=== PATIENT | female | born 1975 | race Caucasian/White ===

== ENCOUNTER 2019-01-20 05:22 | Day surgery (SDC) | payer BC, SELFPAY ==
--- NOTE | 2019-01-14 11:57 | HP.PCM_ITS ---
History and Physical Date of Admission: 01/20/19 Pre-Op History and Physical ? HPI: The patient is a 43 year old female presenting for pre-operative visit. She is scheduled for?TLH, bilateral salpingectomy and cystoscopy, for?pelvic pain, intramural fibroid, dysmenorrhea, status post endometrial ablation on?01/20/19. ??Procedure discussed along with risks, benefits and complications. ?Other alternatives discussed for management. Consent form signed??Yes.? PAST?MEDICAL?HISTORY PAST MEDICAL HISTORY Diagnosis Date ? Pneumothorax 11/2013 ? 3 chest tubes ? PAST?SURGICAL?HISTORY PAST SURGICAL HISTORY Procedure Laterality Date ? ABDOMINOPLASTY ? ? ? APPENDECTOMY ? 1995 ? SECTION HX ? 1995,1999 ? ENDOMETRIAL BIOPSY ? 09/2014 ? INSERTION OF CHEST TUBE ? 11-14-13 ? PAST SURGICAL HISTORY OF ? 12/2014 ? uterine ablation and right oophrectomy? CURRENT?MEDICATIONS Current Outpatient Medications Medication Sig Dispense Refill ? naproxen (NAPROSYN) 375 mg tablet Take 1 tablet by mouth three times daily as needed (pain). 60 tablet 1 ? L-Norgest and E Estradiol-E Estrad (SEASONIQUE) 0.15 mg-30 mcg (84)/10 mcg (7) 3MPk Take 1 tablet by mouth once daily. (Patient not taking: Reported on 01/14/2019 ) 1 Package 1 ? No current facility-administered medications for this visit.? ? ? ALLERGIES:?Ketorolac Tromethamine ? PERSONAL HISTORY:? SOCIAL?HISTORY Social History ??Socioeconomic History ?Marital status: ?Spouse name: Bj ?Number of children: 6 ?Years of education: Not on file ?Highest education level: Not on file ??Occupational History ?Occupation: Admistractive Environmental Engineering Manager ?Employer: [employer] ??Social Needs ?Financial resource strain: Not on file ?Food insecurity: ?Worry: Not on file ?Inability: Not on file ?Transportation needs: ?Medical: Not on file ?Non-medical: Not on file ??Tobacco Use ?Smoking status: Never Smoker ?Smokeless tobacco: Never Used ??Substance and Sexual Activity ?Alcohol use: Yes ?Comment: Occasionall ?Drug use: No ?Sexual activity: Yes ?Partners: Male ? control/protection: Tubal Ligation ?Comment: ablation ??Lifestyle ?Physical activity: ?Days per week: Not on file ?Minutes per session: Not on file ?Stress: Not on file ??Relationships ?Social connections: ?Talks on phone: Not on file ?Gets together: Not on file ?Attends sabianist service: Not on file ?Active member of club or organization: Not on file ?Attends meetings of clubs or organizations: Not on file ?Relationship status: Not on file ?Intimate partner violence: ?Fear of current or ex partner: Not on file ?Emotionally abused: Not on file ?Physically abused: Not on file ?Forced sexual activity: Not on file ??Other Topics ?Concerns: ?Not on file ??Social History Narrative ?Not on file ?? ? FAMILY HISTORY:? FAMILY?HISTORY FAMILY HISTORY Problem Relation Age of Onset ? None Mother ? ? Hypertension Father ? ? Prostate Cancer Father 55 ? Stroke Paternal Grandfather ? ? Cancer Maternal Grandmother ?bladder ? Diabetes Maternal Grandfather ? ? other (Other) Daughter ?Adopted ? other (Other) Daughter ?Adopted ? other (Other) Daughter ?Adopted ? other (Other) Daughter ?Adopted ? ? REVIEW OF SYMPTOMS: GENERAL: denies fevers or chills ENDOCRINOLOGY: has not been on steroids Cardiology : denies palpitations or chest pain Respiratory: denies SOB or cough Hematology: denies history of prolonged bleeding or easy bruising or VTE Allergy: Denies history of personal or family history of allergy to anesthesia ? ? PHYSICAL EXAMINATION: ? VITALS:?There were no vitals taken for this visit. ? GENERAL:??The patient is well nourished, well hydrated in no acute distress. ?, The patient is oriented to time, place, and person. NECK:?Supple. No lynphadenopathy, normal thyroid, no thyromegaly. LUNGS:?Clear to auscultation bilaterally. no wheezes, rhonchi or rales HEART:?Regular rate and rhythm, Normal heart sounds and No murmurs or gallops GENITALIA:?Normal external genitalia, Urethral meatus normal, Bladder nontender, normal vagina and normal vaginal tone, normal cervix, normal uterus, size and consistency, normal adnexa without masses or tenderness and perineum WNL ? Pap 07/01/2018 + HPV, PAP neg EMB- n/a, s/p ablation PELVIC US 04/06/2017 Overall impression: A normal sized anteverted uterus with the measurements shown below. The endometrial echo measures 4.4 mm. The visualization of the endometrium is hampered by the previous ablation Nabothian cysts are noted. A small intramural fibroid is noted on the left side of of uterine fundus The right ovary is surgically absent The left ovary appears normal. There is no free ?fluid in the cul de sac. Recommendations / therapy: Clinical correlation. Follow- up: . Indication: Abnormal Uterine Bleeding. History: Gynecological History: Past gynecological operations: ablation 2014. Gynecological Ultrasonography: Uterus: normal, anteverted. Size: Longitudinal 87 mm. Anterio- posterior 53 mm. Transverse 54 mm. Volume: 130.4 ml. Cervix: multiple nabothian cysts. Myometrium: The following features were observed in the myometrium suggestive of adenomyosis. Fibroids: Fibroid 1: Size: 23 mm x 15 mm x 18 mm. Type: anterior. Position: left fundus. Endometrium: endometrial cavity could not be seen clearly. Endometrium thickness total: 4.4 mm.? ? ? IMPRESSION:?Intramural uterine fibroid, pelvic pain, dysmenorrhea, status post endometrial ablation ? PLAN:???The risks/benefits/alternatives and personal involved for the planned?total upper scopic hysterectomy, bilateral salpingectomy and cystoscopy?were reviewed with the patient. Her questions were answered to her satisfaction and she desires to proceed. ?Consent was signed. ?I reviewed with her postop instructions and expectations.??She's had a previous sterilization and endometrial ablation, she understands she'll not be able to bear children in the future and has completed childbearing. ?She has a history of pelvic adhesions understands lysis of adhesions may be necessary at the time of her surgery. ? ? I have reviewed and updated past medical and surgical history, medications and allergies? Naima Wise M.D.
[2019-01-20] VITALS (8 sets, daily range): BP systolic 92–143; BP diastolic 57–91; PULSE 53–79; RESP 16–18; TEMP 36.2–37.4; O2SAT 95–100; BMI 34.1
--- NOTE | 2019-01-20 | HYST_PTH ---
PATIENT: KIANA SOL LOC: [facility] [place][id number] AGE/SX: 43/F ROOM: RE01/20/[address]: Dr. Naima Wise MD : 1975 BED: DIS: 01/20/2019 SPEC #: [id number] RECD: 01/20/19 12:06 STATUS: ANUP BOOGIE #: [id number] DEREK: 01/20/19 00:[address]: Naima Wise DEPT: SURGICAL PATHOLOGY RECD BY: Gerry Rajan ENTERED: 01/20/19 12:06 SP TYPE: HYSTERECT OTHR DR: Dr. Diego Saab MD Tissues: Uterus, NOS Procedures: Surgery Specimen Level V HEADER OPERATION: Laparoscopic hysterectomy, salpingectomy, cystoscopy PRE-OP DIAGNOSIS: Intramural uterine fibroid, pelvic pain, dysmenorrhea, status post endometrial ablation TISSUE SUBMITTED: Uterus, cervix and bilateral fallopian tubes MICROSCOPIC DIAGNOSIS Uterus, cervix and bilateral fallopian tubes, hysterectomy and bilateral salpingectomy: Cervix - mild chronic cystic cervicitis with tunnel clusters formation. Endometrium - changes consistent with status post endometrial ablation. Myometrium - intramural and subserosal leiomyomas (1.5 cm in greatest dimension). - Focal adenomyosis. Bilateral fallopian tubes - no pathologic diagnosis. Two Filshie clips (gross only). SJ:nenita 01/21/19 MICROSCOPIC DESCRIPTION Slides are reviewed. GROSS DESCRIPTION Received in fixative is one container labeled with the patient's name and designated uterus, cervix and bilateral fallopian tubes. The specimen consists of a hysterectomy specimen consisting of uterus with cervix and detached bilateral fallopian tubes. The uterus with cervix weighs 114 gm and measures 10 x 7 x 6 cm. A few subserosal nodules are noted. The serosal surface is harris, glistening. The ectocervical mucosa is unremarkable. The external os is circular in contour. It is covered with blood clots. The endocervical canal measures 4 cm in length and the endocervical mucosa is harris, glistening and unremarkable. Sections of the cervix reveal multiple cysts filled with mucoid material. The narrow endometrial cavity measures 4.5 cm in length and 1 cm in diameter. The endometrium shows a focal area of fibrosis without any mass lesion and measures <0.1 cm in thickness. Sections of the uterine wall reveal multiple intramural and subserosal nodular masses. The largest mass is subserosal in location and measures 1.5 cm in greatest dimension. Sections of these masses reveal harris whorled cut surfaces without areas of hemorrhage, necrosis or cystic degeneration. The uninvolved uterine wall measures up to 2.5 cm in thickness. Present in the container are two detached fallopian tubes. They are not identified as right or left and measures 5.5 cm in length and 0.6 cm in diameter and 5 cm in length and 0.5 cm in diameter. The fimbrial end is identified. Sections reveal unremarkable cut surfaces. Also present in the container are two Filshie clips which appear intact. Rn Resource Nurse sections are submitted in nine cassettes as follows: 1 - anterior cervix, 2 - posterior cervix, 3 & 4 - anterior uterine wall, 5 & 6 - posterior uterine wall, 7 - nodular masses, 8 & 9 - bilateral fallopian tubes with each cassette containing one fallopian tube. / SHASHA:nenita 01/20/19 TC:1 CPT: 81806
[2019-01-20 05:51] LABS: Internal QC Validated? YES +Cl - CLEAR BKGD; Pregnancy, Urine Negative Negative
[2019-01-20 06:07] LABS: Hematocrit 42.9 % (37-47); Hemoglobin 14.7 g/dL (12.0-15.0); Mean Corp Hgb Conc 34.3 g/dL (32-36); Mean Corpuscular Hgb 31.1 pg (27.0-32.0); Mean Corpuscular Volume 90.9 fL (81-99); Platelet Count 160 K/mm3 (150-450); RBC Distribution Width CV 11.7 % (11.6-14.6); Red Blood Count 4.72 M/mm3 (4.2-5.4); White Blood Count 6.7 K/mm3 (4.4-11.0)
[2019-01-20] MEDS: Acetaminophen 500 MG Tablet 1000 MG PO ×2 (06:41→12:14)
[2019-01-20] MEDS: Celecoxib 200 MG Capsule 400 MG PO (06:41)
[2019-01-20] MEDS: Gabapentin 600 MG Tablet PO (06:41)
[2019-01-20] MEDS: Scopolamine 1mg/72hr Patch 1 PATCH TRANSDERM. (06:42)
[2019-01-20] MEDS: Phenazopyridine 95 MG Tablet 190 MG PO (06:42)
[2019-01-20] MEDS: Enoxaparin 40 MG/0.4 ML Syringe SC (06:43)
[2019-01-20] MEDS: Magnesium Sulfate 4gm/100mL 4 GM/100 ML IV.SOLN. IV (07:20)
[2019-01-20] MEDS: Lactated Ringers 1,000 ML 100 ML IV ×2 (07:20→09:00)
[2019-01-20] MEDS: dexAMETHasone 10 MG/ML Vial 8 MG IV (07:27)
[2019-01-20] MEDS: Cefazolin 2 GM in 0.9% Normal Saline 100 ML IV (07:37)
[2019-01-20] MEDS: Lubricating Jelly 60 GM Tube 30 GM TOPICAL (08:00)
[2019-01-20 08:10] LABS: Bedside Glucose 84 mg/dL (70-110)
[2019-01-20] MEDS: Bupivacaine Mpf 0.5% 30 ML VIAL (09:47)
--- NOTE | 2019-01-20 09:54 | PCM.OPRPT ---
Report of Operation Date of Procedure: 01/20/19 Pre-Operative Diagnosis: DYSMENORRHEA, S/P ENDOEMTRIAL ABLATION, SUBSEROSAL UTERINE FIBROID Post-Operative Diagnosis: SAME Surgery/Procedure Performed:: Total laparoscopic hysterectomy with bilateral salpingectomy and cystoscopy Description of Surgical Findings:: Uterus with subserosal uterine fibroid on the anterior lower uterine segment. Some adhesions of the bladder flap and left lower peritoneum to the uterus, absent right ovary, normal-appearing fallopian tubes with defects from previous Filshie tubal ligation, normal-appearing left ovary corrosion control specialist: Madelin Chung Type of Anesthesia:: General Anesthesiologist: Sruthi Saez Special Medications: NONE Specimen's removed: UTERUS, CERVIX, BILATERAL TUBES Drains: NONE Estimated Blood Loss (mL): 100 Fluids Replaced: 1500 Description of Procedure: The patient was taken to the operating room where she was prepped and draped in the dorsal lithotomy position. Her arms were tucked to the side and padded and her legs were placed in the yellowfin stirrups. Care was taken to ensure that she was placed in a neurologically safe and neutral position. The huggy VAC was used to secure the patient in the shoulder stabilizers were used. A weighted speculum was placed in the vagina and the anterior lip of the cervix was grasped with a single-tooth tenaculum. The cervix sounded to 10 centimeters. 0 Vicryl sutures were secured to the cervix at 3 and 9:00. The Susana cup uterine manipulator placed into the cervix and the balloon inflated. The stay sutures were placed through the cup and secured down to the cervix. Once the Susana cup was secured to the cervix the Carney catheter was placed to straight drain. Attention was turned to the abdominal portion of the case. Before skin incisions were made they were infiltrated with 0.5% Marcaine solution for local anesthetic. A 5 mm supraumbilical incision was made and while tenting the anterior abdominal wall up with towel clamps a 5 mm blade less trocar and sleeve were advanced directly into the peritoneal cavity. Peritoneal placement was confirmed with the laparoscope the pneumoperitoneum was created, and the underlying abdominal contents were intact. The patient was placed in Trendelenburg and the above findings were noted. Right and left lateral 5 mm trochars were placed under direct visualization without difficulty. The ureters were identified on both sides. The antimesenteric portion of the tube was clamped sealed and transected serially on both sides with the LigaSure device. The round ligaments were clamped sealed and transected and a window was made in the peritoneum. The utero-ovarian ligament on the left was then clamped sealed and transected with the LigaSure device and the pedicles were hemostatic The bladder flap was dissected down with the LigaSure device and blunt dissection and the uterine arteries were then skeletonized. Some care was taken to take down the bladder flap as there were some adhesions from her previous sections. There were also some adhesions over the fibroid with it was at the junction of her cervix and lower uterine segment anteriorly. The uterine arteries were clamped sealed and transected on both sides with the LigaSure device. LigaSure was then used to clamp, seal and transect the descending portions of the uterine arteries along the cervix and the cardinal ligaments. At this point the pedicles were all examined and found to be hemostatic. The bladder flap was rechecked and found to be adequately down. The monopolar tip of the LigaSure device was then used to enter the anterior vagina. The vaginal manipulator cup was noted in the vaginal colpotomy incision was made circumferentially around the cup. When the 3 and 9:00 positions of the cervicovaginal junction were reached these were clamped sealed and transected with the LigaSure device to secure any small remaining vessels. At this point the pedicles were hemostatic from above and attention was turned to the vaginal portion of the case again. The tubes had been transected and removed individually during the laparoscopic portion of the case. There was some bleeding from the left vaginal cuff angle and this was grasped with an Allis clamp. Posterior vaginal cuff was run with an 0 Vicryl running lock suture to obtain hemostasis. A modified Liang stitch was then performed with 0 PDS suture, it was placed to the posterior cuff reefed across the posterior peritoneum to both uterosacrals and then back out through the cuff. Vaginal angle sutures were placed on both sides with 0 Vicryl sutures and care was taken to ensure that the uterosacral ligament was secured into this stitch. The remainder the vagina was then closed horizontally with interrupted 0 Vicryl sutures. The cuff was hemostatic vaginally. The Liang suture was then secured down. The Carney catheter was removed and a cystoscopy was performed. The bladder appeared normal and was intact. Both ureteral orifices were noted and both ureteral jets were seen. The cystoscope was removed and the Carney catheter was placed back to straight drain. A sponge stick was placed in the vagina to help place traction against the vaginal cuff and the pneumoperitoneum was re-created. The suction melter supervisor open hearth furnace was used to remove any blood and clots from the peritoneal cavity. The pedicles were reexamined and found to be hemostatic. The vaginal cuff was hemostatic. The pneumoperitoneum was released and even under low pressure there was no bleeding of any of the pedicles are vaginal cuff. The umbilical port was removed. The umbilical skin incisions were closed with Monocryl suture and skin glue. The vaginal instruments were removed by me and a vaginal sweep was completed by me. Entire procedure was performed with assistance by me. There were no qualified residents available for this procedure. All sponge lap and needle counts were correct and the patient was transferred to the recovery room in stable condition. Grafts/Implants Used: NONE - Complications NONE - Admit VTE Documentation VTE Present on Admission: No VTE Mechan Device Prophylaxis: SCD's VTE Pharm Prophylaxis ordered?: No Reason prophylaxis not ordered:: Procedure Not Indicated
[2019-01-20] MEDS: Lactated Ringers 1,000 ML 70 ML IV (10:05)
--- NOTE | 2019-01-20 10:15 | PCM.DC.AHY ---
Discharge Diet: No Restrictions Discharge Activity: Return to Normal Activity, May Not Drive - while taking narcotic pain medications., May Shower May resume sexual activity in: 6-8 weeks Call your doctor if your incision/area has: Continuous Slow Oozing, Sudden Increased Bleeding, Increased Pain/ Swelling, Increased Redness, Foul Smelling Discharge Call your doctor if you observe: Fever of 101 or Higher, Inability to urinate, Inability to have a bowel movement, Using more than one pad per hour Cleanse incision/area with: Soap & Water, - - Your incisions have skin glue, can get wet. Do not feel if the skin glue Additional Instructions: Take 1000 mg of Tylenol every 8 hours, and alternate that with the ibuprofen prescription you were given. If you need to, you may take 1/2-1 oxycodone tablet every 6 hours as needed for breakthrough pain. You may use heat or ice on the abdomen as well for pain control. Allergies/Adverse Reactions: Allergies tramadol HCl [From [facility]] Adverse Reaction (Verified 01/18/19 08:42) Nausea Medications to take at Discharge Ibuprofen [Motrin] 800 mg PO TID PRN PRN #60 tab 01/20/19 Oxycodone [Oxyir] 5 mg PO Q6H PRN PRN 5 Days #12 tab 01/20/19 The following prescriptions were given: Ibuprofen [Motrin] 800 mg PO TID PRN PRN #60 tab PRN Reason: Pain Transmission Status: Sent to [facility] Oxycodone [Oxyir] 5 mg PO Q6H PRN PRN 5 Days #12 tab PRN Reason: Severe Pain (6-02/24) Transmission Status: Sent to [facility] Primary Care Physician: Diego Saab MD [Primary Care Provider] - Test Results: Test results from this visit will be discussed in further detail at your follow-up appointment, if applicable. Please Follow Up With: Naima Wise MD - [phone] When: 1-2 and 6 weeks
[2019-01-20 10:40] LABS: Hematocrit 40.6 % (37-47); Hemoglobin 14.2 g/dL (12.0-15.0); Mean Corpuscular Hgb 31.3 pg (27.0-32.0); Mean Corpuscular Volume 89.4 fL (81-99); Mean Platelet Vol. 10.9 fl (6.2-12.0); Platelet Count 156 K/mm3 (150-450); RBC Distribution Width CV 11.8 % (11.6-14.6); Red Blood Count 4.54 M/mm3 (4.2-5.4); White Blood Count 8.8 K/mm3 (4.4-11.0)
[2019-01-20] MEDS: Ketorolac 30 MG/ML Syringe IV (11:52)
[2019-01-20 13:18] LABS: Hematocrit 40.1 % (37-47); Mean Corp Hgb Conc 34.9 g/dL (32-36); Mean Corpuscular Hgb 31.5 pg (27.0-32.0); Mean Corpuscular Volume 90.1 fL (81-99); Platelet Count 170 K/mm3 (150-450); RBC Distribution Width CV 11.8 % (11.6-14.6); RBC Distribution Width SD 38.2 fl (35.1-43.9); Red Blood Count 4.45 M/mm3 (4.2-5.4); White Blood Count 11.4 K/mm3 (4.4-11.0)
[2019-01-20] MEDS: oxyCODONE 5 MG Tablet PO (13:41)
== END 2019-01-20 15:38 | disposition home or self-care (01) ==
LOC: SDC 05:25 → AC 05:30
PROVIDERS: Family Provider Family Medicine; PCP Family Medicine; Referring Provider Obstetrics & Gynecology; Visit Provider Obstetrics & Gynecology
PROC: (CPT 52000; principal; 2019-01-20 07:10)
DX: D25.1 Intramural leiomyoma of uterus (principal); D25.2 Subserosal leiomyoma of uterus; N80.0 Endometriosis of uterus; N72 Inflammatory disease of cervix uteri; Z86.718 Personal history of other venous thrombosis and embolism
CPT/HCPCS: 00840; 52000; 58571; 36415; 81025; 82962; 85027; 86850; 86900; 86901; 88307; J7120; A4216; J2405